=== PATIENT | female | born 1965 | race Caucasian/White ===

== ENCOUNTER 2016-06-18 03:05 | Emergency (ER) | payer OTHER ==
[~2016-06-18] VITALS: Ht 154.9 cm; Wt 131.5 kg
[2016-06-18] MEDS ORDERED: METHOTREXATE 22.5 MG PO (03:14)
[2016-06-18] MEDS ORDERED: VICOPROFEN 7.51 TAB PO (03:14)
[2016-06-18] MEDS ORDERED: JANUMET 50-5001 EACH PO (03:14)
[2016-06-18] MEDS ORDERED: ASPIRIN 81MG TA81 MG PO (03:15)
[2016-06-18] MEDS ORDERED: LEVOTHYROXIN0.125 MG PO (03:15)
--- NOTE | 2016-06-18 03:26 | Emergency Room Report ---
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 PT STATES THAT HER MOUTH AND FEET ARE ALSO BURNING. 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 N Clinical Suspician of Infection? N Mental Status: 1 - Regular (Normal Baseline) Sepsis Risk:Low Sepsis RisK Have you (or family members/close friends) recently traveled outside the [place]? N If Yes, where/when: Have you had exposure to infectious disease within the past month? N TB? Other? Specify: Source patient, RN notes reviewed, family, EMS, old records Exam Limitations no limitations Comment itchy feet and hands then swollen tongue and throat - has happened 1x before but assoc with hives and she has taken lisinopril for a couple of weeks Cardiac Chest Pain Chest pain indicative of cardiac No Timing/Duration this morning Severity moderate ALLERGIES Coded Allergies: nitrofurantoin (From Macrobid) (06/18/16) sulfamethoxazole (From BACTRIM) (06/18/16) trimethoprim (From BACTRIM) (06/18/16) vancomycin (06/18/16) Home Medications Reported Medications Sitagliptin Phos/Metformin HCl (Janumet 50-500 MG Tablet) 1 EACH PO DAILY Methotrexate 25 MG PO WEEKLY HYDROCODONE/IBUPROFEN (Vicoprofen 7.5-200 MG Tablet) 1 TAB PO BIDP Levothyroxine Sodium (Levothyroxine 0.125MG) 0.125 MG PO DAILY ASPIRIN (Aspirin) 81 MG PO DAILY History Medical History General CAD? No Angina: No VA: No Hypertension? Yes Hyperlipidemia? Yes CHF? No DVT? No PE? No COPD? No Asthma? No Anemia? No GERD? No Gastric ulcers? No GI Bleed? No Hernia? No Thyroid Problems? Yes Hypothyroidism? Yes CVA? No Seizures? No Diabetes? Yes Insulin Dependent: No Insulin Pump: No Home FSBS? No Renal Insuffiency? No End Stage Renal Disease? No UTI? Yes Stones? Yes BPH? No GB Disease: No Nephritic Syndrome? No Asplenia? No Hepatitis? No Sickle Cell Disease? No Arthritis? No Migraines? No Cataracts? No Glaucoma? No MRSA? No HIV? No TB? No Anxiety? No Depression? No Cancer? No More? Yes Additional hx: LUPUS Immunization Hx DT/Tetanus 1-4 YRS Flu THIS YR Pneumonia NEVER Surgical Hx Previous Surgery?Y LITHOTRIPSY C SECTION BASKET EXTRACTION HYSTERECTOMY TVT BSO 05/26 [employer] ENG[employer] TE[employer] Hx LMP N/A Family History Family Hx Diabetes Yes CAD Yes Hypertension Yes Hyperlipidemia Yes Cancer No TB No Social History Smoking Hx Smoker: Never Smoker Tobacco: No Type N/A Are you/the child exposed to second-hand smoke: No Alcohol Alcohol: No Drugs none Review of Systems All Other Systems Reviewed and Negative Constitutional denies fever Eyes denies drainage ENT see HPI, tongue swelling, throat swelling. denies: epistaxis, mouth swelling, throat pain. Respiratory denies cough, denies shortness of breath, denies wheezing Cardiovascular denies chest pain, denies palpitations, denies syncope Gastrointestinal denies abdominal pain, denies diarrhea, denies vomiting Genitourinary denies: dysuria, frequency, hesitancy, hematuria. Musculoskeletal denies back pain, denies gout, denies joint pain, denies neck pain Skin denies rash Psychiatric/Neurological denies headache, denies seizure Physical Exam Vital Signs Vital Signs Date Time Temp Pulse Resp B/P Pulse O2 O2 Flow FiO2 Ox Delivery Rate 06/18 05 76 18 140/82 92 06/18 0457 71 18 141/87 92 06/18 0424 74 18 145/90 92 06/18 0351 80 18 139/91 93 06/18 0307 98.5 91 18 149/121 96 - WBC >12,000 or <4,000 or 10% bands? 2 or more SIRS Criteria Met? B/P:145/90 MAP:130 Creatinine >2.0? UA output<0.5ml/kg/hr for 2 hrs? Platelet count >100,000? Lactate >2.0mmol/1? INR >1.2 or PTT > than 60 sec? Evidence of Organ Dysfunction? Provider documented clinical suspician of infection? N Sepsis Criteria Count: 1 Sepsis Risk: Low Sepsis RisK General Appearance no apparent distress Eye Exam - bilateral eye PERRL, bilateral eye EOMI Ear, Nose, Throat swollen tongue - airway ok Neck supple Respiratory Status No: respiratory distress. Lung Sounds bilateral: lungs clear. 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 No Results/Orders Laboratory Tests 06/18/16 0320: Sodium 142, Potassium 3.7, Chloride 107, Carbon Dioxide 25, BUN 15, Creatinine 1.0, Estimated Creat Clear 141, Estimated GFR (MDRD) 59, Glucose 123 H, Calcium 8.2 L, Total Bilirubin 0.2, AST 36, ALT 64, Alkaline Phosphatase 78, Total Protein 6.7, Albumin 3.0 L, Globulin 3.7 H, Albumin/Globulin Ratio 0.8 L, WBC 11.3 H, RBC 4.72, Hgb 13.2, Hct 42.0, MCV 89.0, RDW 17.4, Plt Count 390, MPV 8.0, Gran % 67.9, Gran # 7.7, Lymphocytes % 26.9, Monocytes % 2.6, Eosinophils % 1.9, Basophils % 0.7, Lymphocytes # 3.1, Monocytes # 0.3, Eosinophils # 0.2, Basophils # 0.1, PUBS MCHC 31.3 L, MCH 27.9 Current Medication Orders Sig/Alysha Start time Last Medication Dose Route Stop Time Status Admin Diphenhydramine HCl 12.5 MG ONCE ONE 06/18 444 DC 06/18 IV 06/18 445 044 Diphenhydramine HCl 0 .STK-MED ONE 06/18 442 DC .ROUTE Methylprednisolone 125 MG ONCE ONE 06/18 329 DC 06/18 Sodium Succinate IV 06/18 330 0331 Sodium Chloride 10 ML PRN PRN 06/18 329 AC IV 06/19 325 Methylprednisolone 0 .STK-MED ONE 06/18 327 DC Sodium Succinate .ROUTE Orders Procedure Date/time Status IV SALINE LOCK 06/18 325 Active CBC WITH AUTO DIFF 06/18 325 Complete CHEM 12 PROFILE 06/18 325 Complete Departure Departure Time of Disposition 445 Disposition DC Home or Self Care(routine) Clinical Impression Primary Impression: Angioedema Qualifiers: Encounter type: initial encounter Qualified Code: T78.3XXA - Angioneurotic edema, initial encounter Condition STABLE Referrals Catalino Aguilar MD (PCP) Patient Instructions DI for Angioedema Additional Instructions call pcp this am ED Critical Care Critical Care No at [id number]
[2016-06-18 03:42] LABS: HEMOGLOBIN 13.2 g/dL (12.2-16.2); LYMPH # 3.1 K/mm3 (0.7-4.5); LYMPH % 26.9 % (10-50.0)
[2016-06-18 05:40] VITALS: BP 140/82
[2016-07-17] MEDS ORDERED: NORCO 325 MG-101 TAB PO (23:24)
== END 2016-06-18 05:44 | disposition home or self-care (01) ==
LOC: ER 03:05
PROVIDERS: Emergency Medicine
DX: T78.3XXA Angioneurotic edema, initial encounter (principal); E11.9 Type 2 diabetes mellitus without complications; I10 Essential (primary) hypertension

== ENCOUNTER 2016-06-25 15:26 | Outpatient (CLI) | payer OTHER ==
[2016-06-25] VITALS (8 sets, daily range): BP systolic 111–128; BP diastolic 69–76
[~2016-06-25 15:26] MED LIST: ASPIRIN 81MG TA81 MG PO; JANUMET 50-5001 EACH PO; LEVOTHYROXIN0.125 MG PO; METHOTREXATE 22.5 MG PO; VICOPROFEN 7.51 TAB PO
[2016-06-25 16:24] LABS: BUN 8 mg/dL (7-18)
[2016-06-25 16:25] LABS: GFR (ESTIMATED) 67 ML/MIN (59-)
[2016-06-25 20:58] LABS: HEMOGLOBIN 14.4 g/dL (12.2-16.2); LYMPH # 1.7 K/mm3 (0.7-4.5); LYMPH % 11.5 % (10-50.0)
[2016-06-25 23:35] LABS: NEUTROPHILS 86 % (42-76)
[2016-07-17] MEDS ORDERED: NORCO 325 MG-101 TAB PO (23:24)
== END 2016-06-25 17:24 | disposition home or self-care (01) ==
LOC: COP 15:26
PROVIDERS: Nurse Practitioner Family
DX: N39.0 Urinary tract infection, site not specified (principal); R50.9 Fever, unspecified; R51 Headache; E86.0 Dehydration

== ENCOUNTER → 2017-03-27 | Outpatient (CLI) | payer OTHER ==
[~2017-03-27] MED LIST changes: +NORCO 325 MG-101 TAB PO
--- NOTE | 2017-03-27 18:54 | RADIOLOGY REPORT PS360 ---
HIP LT 2-3V W/PELVIS IF PERFOR HISTORY: Left hip pain following injury PAIN ORDERING PHYSICIAN: Jasmin Joshi APRN PATIENT AGE: 51 years COMPARISON: None FINDINGS: No fracture or dislocation is evident. No significant degenerative change. No lytic or blastic change. Unremarkable soft tissues IMPRESSION: Negative hip
== END ==
LOC: RAD 17:25
DX: M25.552 Pain in left hip (principal)